=== PATIENT | male | born 1995 | race Caucasian/White ===

== ENCOUNTER 2020-05-23 13:01 | Emergency (ER) | payer OTHER ==
[2020-05-23] MEDS ORDERED: VENTOLIN HFA IN18 GM INH (14:33)
[2020-05-23] MEDS ORDERED: MEDROL 4MG DOSEP4 MG PO (14:33)
[2020-05-23] MEDS ORDERED: ZPAK PO (14:33)
== END 2020-05-23 14:40 | disposition home or self-care (01) ==
LOC: FER 13:01
DX: J40 Bronchitis, not specified as acute or chronic (principal); J32.9 Chronic sinusitis, unspecified; Z87.09 Personal history of other diseases of the respiratory system
CPT/HCPCS: 71046